=== PATIENT | male | born 1985 | race Caucasian/White ===

== ENCOUNTER 2018-07-01 05:29 | Day surgery (SDC) | payer OTHER ==
[2018-06-30 09:41] VITALS: BMI 28.1
--- NOTE | 2018-07-01 08:51 | HP ---
[facility] - Chief Complaint Chief Complaint: right knee pain - Past Medical History Allergies/Adverse Reactions: Allergies Allergy/AdvReac Type Severity Reaction Status Date / Time Penicillins Allergy Verified 06/30/18 09:41 - Current Medications Current Medications: Home Medications Medication Instructions Recorded Alprazolam [Xanax] 0.5 mg PO BID 06/30/18 Oxycodone HCl/Acetaminophen 1 tab PO Q6H #20 tablet MDD 4 07/01/18 [Percocet 5-325 mg Tablet] [facility] Physical Exam - Physical Examination General Appearance: Well Nourished, Well Developed, Alert & Oriented x3 ENT: Clear Lung: Normal air movement Heart: Regular rate & rhythm Extremities: Other (right knee- +swelling, + ttp ,decr rom, + mcmurrays, nvi MRI + mt) Neurological: Intact, Alert, Oriented [facility] Impression/Plan - Impression/Plan Impression: right knee internal derangement Operative Procedure: right knee arthroscopy Date to be Performed: 07/01/18
[2018-07-01] MEDS ORDERED: SEVOFLURANE 250 ML BTL ONE (09:11)
[2018-07-01] MEDS ORDERED: DESFLURANE GAS 240 ML BOTTLE IH ONE (09:11)
[2018-07-01] MEDS ORDERED: MIDAZOLAM HCL 2 MG/2 ML SINGLE DOSE VIAL ONE (09:16)
[2018-07-01] MEDS ORDERED: BUPIVACAINE HCL/PF 0.5% (5MG/ML) 10 ML VIAL ONE (09:29)
[2018-07-01] MEDS ORDERED: LIDOCAINE 1%/EPI 1:100000 (20 ML MULTI DOSE VIAL) ONE (09:29)
[2018-07-01] MEDS ORDERED: PROPOFOL 20 ML ONE ×3 (10:35→10:48)
[2018-07-01] MEDS ORDERED: LIDOCAINE 1%/EPI 1:100000 (20 ML MULTI DOSE VIAL) PNB ONE (10:55)
[2018-07-01] MEDS ORDERED: BUPIVACAINE HCL/PF 0.5% (5MG/ML) 10 ML VIAL IJ ONE (11:10)
[2018-07-01] MEDS ORDERED: ONDANSETRON 4 MG/2 ML VIAL IVPUSH PRN (11:38)
[2018-07-01] MEDS ORDERED: PROMETHAZINE HCL 25 MG/1 ML VIAL IVPUSH PRN (11:38)
[2018-07-01] MEDS ORDERED: oxyCODONE HCL 5 MG TABLET PO PRN (11:38)
[2018-07-01] MEDS ORDERED: LACTATED RINGERS SOLUTION 1,000 ML IV SCH (11:45)
--- NOTE | 2018-07-01 12:19 | OP ---
Operative Note - Note: Operative Date: 07/01/18 ([facility]) Pre-Operative Diagnosis: right knee internal derangement Operation: right knee arthroscopy with PLM Post-Operative Diagnosis: Same as Pre-op Surgeon: Judson Silver Anesthesia: General, Local Specimens Removed: shavings Estimated Blood Loss (mls): 5 Operative Report Dictated: Yes
[2018-07-01 12:59] VITALS: TEMP 98
--- NOTE | 2018-07-01 13:41 | OP ---
DATE OF OPERATION: 07/01/2018 PREOPERATIVE DIAGNOSIS: Right lateral meniscus tear. POSTOPERATIVE DIAGNOSIS: Right lateral meniscus tear. PROCEDURE: Arthroscopy, right knee partial lateral meniscectomy. SURGICAL ATTENDING: Judson Silver MD ANESTHESIA: General LMA. CLOSURE: 4-0 nylon. COMPLICATIONS: None. CONDITION: To recovery room in stable condition. DESCRIPTION OF PROCEDURE: The patient was taken to the operating room on July 01, 2018. General anesthesia with LMA was administered by the anesthesiologist. The right lower extremity was prepped and draped in the usual sterile fashion. The medial and lateral infrapatellar portal sites were infiltrated with 1% Xylocaine with epinephrine. The lateral infrapatellar portal was then made with a 15 blade followed by a blunt trocar with the scope being placed up this portal into the pouch. The knee was inflated with a cocktail of 10 mL of 1% Xylocaine, 10 mL of 0.5% Marcaine, and 20 mL of arthroscopic saline. The fluid was allowed to sit in the knee, and then, the procedure was performed. The medial and lateral gutters were visualized to be clean. The medial compartment was entered. With valgus stress on the knee, the medial meniscus was visualized and probed, and found to be intact. The medial femoral condyle was run and found to be intact, as was the medial tibial plateau. At 90 degrees, the ACL was visualized and probed and found to be intact. In the figure-of-4 position, the lateral compartment was entered. The lateral meniscus was found to have radial tear of its mid portion. This was debrided back to smooth stable meniscal tissues using meniscal biter and arthroscopic shaver. The lateral femoral condyle was run and found to be intact, as was the lateral tibial plateau. The knee was irrigated with copious amounts of irrigation. Portals were closed with 4-0 nylon. Prior to closure, 20 mL of 0.5% Marcaine was infused in the knee for postoperative analgesia. Sterile pressure dressing was placed over the knee. Patient awakened from anesthesia and transferred to recovery in stable condition. No complications. Estimated blood loss negligible. Nicky [id number]
[2018-07-01 14:10] VITALS: BP 143/77; PULSE 59
--- NOTE | 2018-07-04 16:39 | PATH ---
Surgical Pathology Report Patient Name: GERMAN TAN [facility]. Rec. #: [id number] /Age/Gender: 1985 (Age: 32) / M Account: [id number] Location: [facility] SURGICAL Taken: 07/01/2018 Received: 07/01/2018 Reported: 07/04/2018 Physicians: Judson Silver M.D. Specimen(s) Received RIGHT KNEE SHAVINGS Clinical History Right knee tear Final Diagnosis KNEE SHAVINGS, RIGHT, ARTHROSCOPY: FRAGMENTS OF CARTILAGE, DENSE FIBROCONNECTIVE TISSUE, ADIPOSE TISSUE, AND REACTIVE SYNOVIUM. Electronically Signed Pascale Montesinos M.D. Gross Description Received in formalin, labeled "right knee shavings," is a 2.5 x 2.1 x 0.3 cm. aggregate of nunez-yellow soft tissue fragments. A medical device sales representative portion is submitted in one cassette. /07/01/2018 saudi07/01/2018
== END 2018-07-01 14:00 | disposition home or self-care (01) ==
LOC: JASU-SURG 05:29
PROVIDERS: ATTEND Orthopaedic Surgery
PROC: 0SBC4ZZ Excision of Right Knee Joint, Percutaneous Endoscopic Approach (ICD-10-PCS; principal; 2018-07-01 09:30)
DX: S83.281A Other tear of lateral meniscus, current injury, right knee, initial encounter (principal); X58.XXXA Exposure to other specified factors, initial encounter; Y93.9 Activity, unspecified; Y92.9 Unspecified place or not applicable; Y99.9 Unspecified external cause status
CPT/HCPCS: 88304-TC; 94760

== ENCOUNTER 2021-03-25 05:54 | Day surgery (SDC) | payer BC ==
[2021-03-20 09:39] VITALS: BMI 32.5
[2021-03-25] MEDS ORDERED: SODIUM CHLORIDE 0.9% P/F 10 ML VIAL IJ ONE (10:17)
[2021-03-25] MEDS ORDERED: BUPIVACAINE HCL 150 ML ONE (10:18)
[2021-03-25] MEDS ORDERED: LIDOCAINE 1%/EPI 1:100000 (20 ML MULTI DOSE VIAL) ONE (10:18)
[2021-03-25] MEDS ORDERED: MIDAZOLAM HCL 2 MG/2 ML SINGLE DOSE VIAL ONE ×2 (10:27)
[2021-03-25] MEDS ORDERED: PROPOFOL 20 ML ONE (10:28)
[2021-03-25] MEDS ORDERED: LIDOCAINE HCL/PF 2% SDV 5ML VIAL ONE (11:02)
[2021-03-25] MEDS ORDERED: ONDANSETRON 4 MG/2 ML VIAL ONE (11:02)
[2021-03-25] MEDS ORDERED: DEXAMETHASONE SOD PHOSPHATE 4 MG/1 ML VIAL ONE (11:02)
[2021-03-25] MEDS ORDERED: KETOROLAC TROMETHAMINE 30 MG/1 ML VIAL ONE (11:02)
[2021-03-25] MEDS ORDERED: ONDANSETRON 4 MG/2 ML VIAL IVPUSH PRN (11:24)
[2021-03-25] MEDS ORDERED: PROMETHAZINE HCL 25 MG/1 ML VIAL IVPUSH PRN (11:24)
[2021-03-25] MEDS ORDERED: oxyCODONE HCL 5 MG TABLET PO PRN (11:24)
[2021-03-25] MEDS ORDERED: LACTATED RINGERS SOLUTION 1,000 ML IV SCH (11:30)
[2021-03-25 13:03] VITALS: TEMP 97
[2021-03-25 13:04] VITALS: PULSE 66
[2021-03-25 13:06] VITALS: BP 126/68
== END 2021-03-25 13:06 | disposition home or self-care (01) ==
LOC: FASU 05:54
PROVIDERS: ATTEND Orthopaedic Surgery
PROC: 0SBD4ZZ Excision of Left Knee Joint, Percutaneous Endoscopic Approach (ICD-10-PCS; principal; 2021-03-25 10:56)
DX: S83.242A Other tear of medial meniscus, current injury, left knee, initial encounter (principal); X58.XXXA Exposure to other specified factors, initial encounter; Y93.9 Activity, unspecified; Y92.9 Unspecified place or not applicable
CPT/HCPCS: 94760